=== PATIENT | male | born 1965 | race Caucasian/White ===

== ENCOUNTER 2017-10-15 01:47 | Emergency (ER) | payer OTHER ==
[~2017-10-15] VITALS: Ht 180.3 cm; Wt 104.3 kg
[2017-10-15] MEDS ORDERED: HYDROCHLOROTHIA25 M2 (01:58)
[2017-10-15 02:27] LABS: ABSOLUTE BASOPHILS 0.1 thou/uL (0.0-0.2); ABSOLUTE EOSINOPHILS 0.2 thou/uL (0.0-0.7); ABSOLUTE LYMPHOCYTES 2.2 thou/uL (0.8-5.3); ABSOLUTE MONOCYTES 0.6 thou/uL (0.0-1.2); ABSOLUTE NEUTROPHILS 2.9 thou/uL (1.6-8.1); BASOPHILS 1.7 %; EOSINOPHILS 3.6 %; HEMATOCRIT 45.5 % (42.0-52.0); HEMOGLOBIN 15.6 gm/dL (14.0-18.0); LYMPHOCYTES 36.6 %; MCH 30.5 pg (26.0-34.0); MCHC 34.3 g/dL (28.0-37.0); MCV 88.9 fL (80.0-100.0); MONOCYTES 9.5 %; MPV 9.4 fl. (7.2-11.1); NUCLEATED RBCS 0 /100WBC; PLATELET COUNT* 200 thou/uL (150-400); POLYS 48.6 %; RBC 5.11 mil/uL (4.50-6.00); RDW-CV 12.4 % (10.5-14.5)
[2017-10-15 02:35] LABS: ANION GAP 10 mmol/L (7-16); BUN 12 mg/dL (7-18); CALCIUM 8.6 mg/dL (8.5-10.1); CHLORIDE 102 mmol/L (98-107); CO2 29 mmol/L (21-32); GLUCOSE 120 mg/dL (70-99); POTASSIUM 3.5 mmol/L (3.5-5.1); SODIUM 141 mmol/L (136-145)
[2017-10-15 02:42] LABS: ALKALINE PHOSPHATASE 96 U/L (46-116); SGOT 22 U/L (15-37); SGPT 54 U/L (30-65); TOTAL BILIRUBIN 0.8 mg/dL (<0.1-1.0); TOTAL PROTEIN 7.4 g/dL (6.4-8.2); TROPONIN-I LEVEL <0.06 ng/mL (<0.06)
[2017-10-15 03:48] VITALS: BP 136/90
--- NOTE | 2017-10-15 18:10 | EKG ---
[place] [address] ELECTROCARDIOGRAM REPORT Name: MANDO ADDISON [id number] Admission: 10/15/17 Attend Phys: Discharge: 10/15/17 Date of : 65 Report #: [id number] THIS REPORT FOR: //name// [facility] ED Test Date: 2017-10-15 Test Time: 02:09:54 Pat Name: MANDO ADDISON Department: Room: Gender: M Painter Aircraft: MAUREEN Smith : 1965 Requested By: Tonia Cuevas Order Number: [id number] MD: Gordon Krishnamurthy Measurements Intervals [place] Rate: 79 P: 10 [place]: 165 QRS: -7 QRSD: 85 T: 19 QT: 383 QTc: 440 Interpretive Statements Sinus rhythm Low voltage, precordial leads Baseline wander in lead(s) V1 No previous ECG available for comparison Electronically Signed On 10-15-2017 18:09:52 CDT by Gordon Krishnamurthy [email or web address] <ELECTRONICALLY SIGNED> By: Gordon Krishnamurthy MD, [facility] 10/15/17 1809 8 Gordon Krishnamurthy MD, FACC /EPI
[2017-10-17 13:11] LABS: FREE TESTOSTERONE 9.9 pg/mL (7.2-24.0)
== END 2017-10-15 03:49 | disposition home or self-care (01) ==
LOC: M.ERS 01:47
PROVIDERS: Emergency Medicine
DX: G47.00 Insomnia, unspecified (principal)